=== PATIENT | male | born 1950 | race Caucasian/White ===

== ENCOUNTER 2022-11-19 15:51 | Emergency (ER) | payer OTHER ==
[2022-11-19 17:02] LABS: Hemoglobin 13.5 g/dL (13.5-17.5); Mean Corpuscular Hemoglobin 30.2 pg (27.0-33.0); Mean Corpuscular Volume 91.5 fl (81.2-95.1); Mean Platelet Volume 12.1 fl (7.4-10.4); Platelet Count 209 10x3/uL (150-450); RBC Distribution Width 13.6 % (11.5-14.5); Red Blood Cell (RBC) Count 4.47 10x6/uL (4.32-5.72)
[2022-11-19 17:11] LABS: ALT (SGPT) 31 U/L (8-55); AST (SGOT) 30 U/L (5-34); Albumin 4.1 g/dL (3.4-4.8); Alkaline Phosphatase 67 U/L (40-110); Anion Gap 13 mmol/L (10-20); BUN (Urea Nitrogen) 30 mg/dL (8.4-25.7); Bilirubin, Total 0.3 mg/dL (0.2-1.2); Calc. Creatinine Clearance 0 mL/min (70-130); Calcium 9.7 mg/dL (7.8-10.44); Carbon Dioxide 24 mmol/L (23-31); Chloride 99 mmol/L (98-107); Estimated GFR 80; Globulin 2.2 g/dL (2.4-3.5); Glucose 109 mg/dL (83-110); Potassium 3.9 mmol/L (3.5-5.1); Protein, Total 6.3 g/dL (5.8-8.1); Sodium 132 mmol/L (136-145)
[2022-11-19 17:15] LABS: MDiff Complete? YES
[2022-11-19 17:22] LABS: Eosinophils 3 % (0-10); Lymphocytes 25 % (21-51); Monocytes 13 % (0-10); Neutrophil 57 % (42-75); RBC Morph Comment Within Normal Limits; Reactive Lymphocytes 2 % (0-10)
[2022-11-19 17:23] LABS: Platelet Adequacy Comment Appears Adequate
[2022-11-19 18:23] LABS: Bilirubin Neg (Negative); Blood, Urine 250 (Negative); Clarity Slightly Cloudy (Clear); Glucose, Urine (Dipstick) Normal (Negative); Ketone, Urine Negative (Negative); Leukocyte 25 (Negative); Nitrite Negative (Negative); Protein, Urine (Dipstick) 30 mg/dl (Neg-Trace); Specific Gravity, Urine 1.015 (1.005-1.030); Urobilinogen Normal mg/dL (Less than 2); pH, Urine 6.5 (5.0-9.0)
[2022-11-19 18:31] LABS: CAUTI Indications for Culture Dysuria,urgency,freq; RBC/HPF Greater than 50 HPF (0-3); Squamous Epithelial 0-3 HPF (0-3)
[2022-11-19 18:32] LABS: Bacteria/HPF 1+ HPF (None Seen)
[2022-11-19 18:33] LABS: Calcium Oxalate Crystals Rare HPF (None Seen); Mucous/LPF 1+ LPF (<2+)
[2022-11-19 18:34] LABS: Urine Culture Reflex No No
== END 2022-11-19 19:21 | disposition home or self-care (01) ==
LOC: CSHERS 15:51
DX: N39.0 Urinary tract infection, site not specified (principal); R60.0 Localized edema; E78.5 Hyperlipidemia, unspecified; J45.909 Unspecified asthma, uncomplicated; I10 Essential (primary) hypertension
CPT/HCPCS: 36415; 71045; 80053; 81001; 83880; 84484; 85025; 93005